=== PATIENT | female | born 1995 | race Two or more races ===

== ENCOUNTER 2019-06-17 14:47 | Outpatient (CLI) | payer OTHER ==
[2019-06-17 15:26] LABS: APPEARANCE,URINE SLIGHTLY-CLOUDY; BILIRUBIN,URINE NEGATIVE (NEGATIVE); COLOR,URINE YELLOW; GLUCOSE, URINE 50 mg/dL (NEGATIVE); KETONES,URINE NEGATIVE (NEGATIVE); LEUKOCYTE ESTERASE,URINE NEGATIVE (NEGATIVE); NITRITE,URINE NEGATIVE (NEGATIVE); PROTEIN,URINE NEGATIVE (NEGATIVE); URINE SPECIFIC GRAVITY 1.017; UROBILINOGEN,URINE NEGATIVE mg/dL (<2.0)
[2019-06-17 15:34] LABS: HEMATOCRIT 38.3 % (36.0-47.0); MEAN CORPUSCULAR HEMOGLOBIN 30.3 pg (27.0-33.4); MEAN CORPUSCULAR VOLUME 89 fl (80-97); PLATELET COUNT 281 10^3/uL (150-450); RED CELL DISTRIBUTION WIDTH 13.5 % (11.5-14.0); WHITE BLOOD COUNT 15.4 10^3/uL (4.0-10.5)
[2019-06-17 15:45] LABS: ALBUMIN 3.9 g/dL (3.5-5.0); ALKALINE PHOSPHATASE 65 U/L (38-126); ANION GAP 10 (5-19); ASPARTATE AMINO TRANSFERASE 24 U/L (14-36); BILIRUBIN,DIRECT 0.1 mg/dL (0.0-0.4); BILIRUBIN,TOTAL 0.2 mg/dL (0.2-1.3); BLOOD UREA NITROGEN 11 mg/dL (7-20); CALCIUM 9.5 mg/dL (8.4-10.2); CARBON DIOXIDE 21 mmol/L (22-30); CHLORIDE 104 mmol/L (98-107); GLUCOSE 86 mg/dL (75-110); POTASSIUM 3.9 mmol/L (3.6-5.0); TOTAL PROTEIN 7.2 g/dL (6.3-8.2); URIC ACID 3.2 mg/dL (2.5-6.2)
[2019-06-17 15:51] LABS: URINE AMPHETAMINES SCREEN NEGATIVE; URINE BARBITURATES SCREEN NEGATIVE; URINE BENZODIAZEPINES SCREEN NEGATIVE; URINE COCAINE SCREEN NEGATIVE; URINE MARIJUANA (THC) SCREEN NEGATIVE; URINE METHADONE SCREEN NEGATIVE; URINE PHENCYCLIDINE SCREEN NEGATIVE
[2019-06-17 15:52] LABS: UR PRO/CREAT RATIO RESULT 0.2 mg/mg (0.0-0.2); URINE CREATININE 100.2 mg/dL (16-327); URINE PROTEIN 16.1 mg/dL (<12)
[2019-06-17 16:05] LABS: ABSOLUTE LYMPHOCYTES# (MANUAL) 1.8 10^3/uL (0.5-4.7); ABSOLUTE MONOCYTES # (MANUAL) 1.1 10^3/uL (0.1-1.4); BASOPHILS % (MANUAL) 0 % (0-2); EOSINOPHILS % (MANUAL) 2 % (0-6); LYMPHOCYTES % (MANUAL) 12 % (13-45); MONOCYTES % (MANUAL) 7 % (3-13); SEGMENTED NEUTROPHILS % (MAN) 79 % (42-78); TOTAL CELLS COUNTED 100
[2019-06-17 16:06] LABS: OVALOCYTES SLIGHT; PLATELET COMMENT ADEQUATE; PLATELET LARGE PRESENT; POLYCHROMASIA SLIGHT
== END 2019-06-17 16:26 | disposition home or self-care (01) ==
LOC: LC 14:47
PROVIDERS: ATTEND Obstetrics & Gynecology
PROC: 4A1HXCZ Monitoring of Products of Conception, Cardiac Rate, External Approach (ICD-10-PCS; principal; 2019-06-17)
DX: O16.2 Unspecified maternal hypertension, second trimester (principal); Z3A.25 25 weeks gestation of pregnancy
CPT/HCPCS: 36415; 80053; 80307; 81001; 82570; 83615; 84156; 84550; 85025

== ENCOUNTER 2019-08-02 00:45 | Outpatient (CLI) | payer OTHER ==
[2019-08-02 01:21] LABS: APPEARANCE,URINE CLEAR; BILIRUBIN,URINE NEGATIVE (NEGATIVE); COLOR,URINE STRAW; GLUCOSE, URINE 150 mg/dL (NEGATIVE); KETONES,URINE NEGATIVE (NEGATIVE); LEUKOCYTE ESTERASE,URINE NEGATIVE (NEGATIVE); NITRITE,URINE NEGATIVE (NEGATIVE); PROTEIN,URINE NEGATIVE (NEGATIVE); URINE SPECIFIC GRAVITY 1.009; UROBILINOGEN,URINE NEGATIVE mg/dL (<2.0)
[2019-08-02 01:50] LABS: URINE AMPHETAMINES SCREEN NEGATIVE; URINE BARBITURATES SCREEN NEGATIVE; URINE BENZODIAZEPINES SCREEN NEGATIVE; URINE COCAINE SCREEN NEGATIVE; URINE MARIJUANA (THC) SCREEN NEGATIVE; URINE METHADONE SCREEN NEGATIVE; URINE PHENCYCLIDINE SCREEN NEGATIVE
== END 2019-08-02 01:56 | disposition home or self-care (01) ==
LOC: LC 00:45
PROVIDERS: ATTEND Obstetrics & Gynecology
PROC: 4A1HXCZ Monitoring of Products of Conception, Cardiac Rate, External Approach (ICD-10-PCS; principal; 2019-08-02)
DX: O36.8190 Decreased fetal movements, unspecified trimester, not applicable or unspecified (principal); Z3A.31 31 weeks gestation of pregnancy
CPT/HCPCS: 80307; 81001

== ENCOUNTER 2019-08-28 14:54 | Outpatient (CLI) | payer OTHER, MEDICAID ==
--- NOTE | 2019-08-28 16:49 | Non Stress Test Report ---
Non Stress Test Datetime Report Generated by CPN: 08/28/2019 16:49 DEMOGRAPHIC Test Number: 1 EGA NST: 35.3 INDICATION Indication for Study (NST) Other: Ordered by provider VITAL SIGNS Temperature - NST: 98.3 Pulse - NST: 96 RESP - NST: 14 NBPSYS NST: 139 NBPDIA NST: 79 MONITORING Monitor Explained: Monitor Explained; Test Explained; Patient Verbalized Understanding Time on Monitor: 08/28/2019 15:15 Time off Monitor: 08/28/2019 15:54 NST Duration: 39 NST INTERVENTIONS NST Interventions: PO Hydration Physician Notified NST: K Goyal BABY A: [id number] BABY A Movement : Present Contraction Frequency : o FHR Baseline : 125 Accelerations : 15X15 Decelerations : None Variability : Moderate 6-25bpm NST Review: Meets Criteria for Reactive NST NST Review and Verified By : Anita Polanco RN NST Results: Reactive NST REPORT Report Trigger: Send Report
== END 2019-08-28 16:17 | disposition home or self-care (01) ==
LOC: LC 14:54
PROVIDERS: ATTEND Obstetrics & Gynecology
PROC: 4A1HXCZ Monitoring of Products of Conception, Cardiac Rate, External Approach (ICD-10-PCS; principal; 2019-08-28)
DX: Z34.93 Encounter for supervision of normal pregnancy, unspecified, third trimester (principal)
CPT/HCPCS: 59025; 94760

== ENCOUNTER 2019-09-08 19:26 | Inpatient (IN) | payer OTHER, MEDICAID ==
[2019-09-08] MEDS ORDERED: RINGERS SOLUTION,LACTATED 300 ML IV ONE ×2 (20:18→20:43)
[2019-09-08] MEDS ORDERED: DINOPROSTONE 10 MG VAGINAL INSERT.SR PV PRN ×2 (20:18→20:43)
[2019-09-08] MEDS ORDERED: RINGERS SOLUTION,LACTATED 1,000 ML IV PRN ×2 (20:18→20:43)
[2019-09-08] MEDS ORDERED: LIDOCAINE 1% INJ-PF (10 MG/ML) 30 ML SDV ONE (20:38)
[2019-09-08] MEDS ORDERED: MISOPROSTOL 0.2 MG TABLET ONE (20:38)
[2019-09-08] MEDS ORDERED: OXYTOCIN/NORMAL SALINE 20 UNIT/1,000 ML RTUINJ ONE (20:38)
[2019-09-08] MEDS ORDERED: DINOPROSTONE 10 MG VAGINAL INSERT.SR ONE (20:38)
[2019-09-08] MEDS ORDERED: OXYTOCIN 10 UNIT/ML VIAL ONE (20:38)
[2019-09-08 20:43] LABS: APPEARANCE,URINE SLIGHTLY-CLOUDY; BILIRUBIN,URINE NEGATIVE (NEGATIVE); CALCIUM OXALATE CRYSTALS,URINE MANY /HPF; COLOR,URINE YELLOW; GLUCOSE, URINE 50 mg/dL (NEGATIVE); KETONES,URINE 20 mg/dL (NEGATIVE); LEUKOCYTE ESTERASE,URINE NEGATIVE (NEGATIVE); NITRITE,URINE NEGATIVE (NEGATIVE); PROTEIN,URINE 30 mg/dL (NEGATIVE); UROBILINOGEN,URINE NEGATIVE mg/dL (<2.0)
[2019-09-08] MEDS ORDERED: OXYTOCIN/NORMAL SALINE 20 UNIT/1,000 ML RTUINJ IV PRN (20:43)
[2019-09-08] MEDS ORDERED: PENICILLIN G-K 5 MILLION UNIT VIAL IV ONE (20:46)
--- NOTE | 2019-09-08 21:04 | Admission Physical ---
Datetime Report Generated by CPN: 09/08/2019 21:04 CURRENT ADMISSION Chief Complaint: Scheduled Induction of Labor Indication for Induction: PreEclampsia Indication for Induction- Other: Preeclampsia, mild Diagnosed by elevated blood pressures and 24 hour urine of 581 No severe features Admit Impression : Induction of Labor Admit Plan: Admit to Unit; Initiate Labor Induction Protocol ALLERGIES Medication Allergies: No Medication Allergies: No Known Allergies (09/08/2019) Latex: Unknown OBSTETRICAL HISTORY EDC: 09/29/2019 00:00 : 1 Para: 0 Term: 0 : 0 SAB: 0 IAB: 0 Ectopic: 0 Livin Cesareans: 0 VBACs: 0 Multiple Births: 0 Gestational Diabetes: No Rh Sensitization: No Incompetent Cervix: No ALLISON: No Infertility: No ART Treatment: No Uterine Anomaly: No IUGR: No Hx Previous C/S: No Macrosomia: No Hx Loss/Stillborn: No PIH: No Hx : No Placenta Previa/Abruption: No Depression/PP Depression: No (Annotations: Data stored by CPN on behalf of user) PTL/PROM: No Post Hemorrhage: No Current Procedures: Ultrasound Obstetrical History Comments: G1- first , elevated b/p lapse in care between 5 total visits prior to 25 weeks SEE RECORDS Alcohol: No Marijuana : Yes Marijuana Frequency: Occasional Last Used: 01/11/2019 00:00 Previous Treatment: None Marijuana Comments: states occasional use prior to Cocaine: No Other Illicit Drugs: No Cigarettes: Former Smoker. 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 Saw therapist in 2016 for depression, no current meds or care noted. Hospitalized in 2013 for Bronchitis. Dx with UTI last week currently on Amoxicillin, Bacterial Vaginosis 05/2019. Father criminal history and drug use deported to [place] with no contact since. INFECTIOUS HISTORY Gonorrhea: No Genital Herpes: No Chlamydia: Yes Tuberculosis: No Syphilis: No Hepatitis: No HIV/AIDS Exposure: No Rash or Viral Illness: No HPV: No Infectious History Comments: chlamydia 05/2016 PHYSICAL EXAM General: Normal HEENT: Normal Neurologic: Normal Thyroid: Normal Heart: Normal Lungs: Normal Breast: Normal Back: Normal Abdomen: Normal Genitourinary Exam: Normal Extremities: Normal DTRs: Normal Pelvic Type: Adequate Physical Exam Comments: NO RUQ pain on palpation. Lungs CTAB, RRR, S1S2 BLE reflexes 1/4 with no clonus Vital Signs: Reviewed; Within Normal Limits VAGINAL EXAM Dilatation: 0 Effacement: 25 Station: -3 Contraction Comments: no regular MEMBRANES Membranes: Intact FETUS A EGA: 37.0 Monitoring: External US FHR- Baseline: 125 Variability: Moderate 6-25bpm Accelerations: 15X15 Decelerations: None FHR Category: Category I Presentation: Vertex Admit Comment: 23 yio G1 at 37.0 wks EGA for IOL d/t preeclampsia mild without severe features diagnosed by elevated blood pressures and 24 hour protein of 581 -Admit to LDR -NPO and IVFs -CEFM and [place] -GBS positive: PCN -O positive blood type -Plan for cervidil tonight; cl/th/high. Placed at 2041 PLANS FOR LABOR AND DELIVERY Labor and Delivery: None Pain Management: Natural Feeding Preference: Breast Benefit of Breast Feed Discussed: Yes Circumcision: No INFORMED CONSENT Informed Consent Obtained: Vaginal Delivery; Section Delivery; Induction of Labor; Risks, Benefits and Alternatives Discussed Signature: with User ID: [email or web address] : with User ID: [email or web address]
[2019-09-08 21:24] LABS: URINE AMPHETAMINES SCREEN NEGATIVE; URINE BARBITURATES SCREEN NEGATIVE; URINE BENZODIAZEPINES SCREEN NEGATIVE; URINE COCAINE SCREEN NEGATIVE; URINE MARIJUANA (THC) SCREEN NEGATIVE; URINE METHADONE SCREEN NEGATIVE; URINE PHENCYCLIDINE SCREEN NEGATIVE
[2019-09-08 21:25] LABS: ABSOLUTE EOSINOPHILS # (AUTO) 0.1 10^3/uL (0.0-0.6); ABSOLUTE LYMPHOCYTES (AUTO) 2.7 10^3/uL (0.5-4.7); ABSOLUTE MONOCYTES (AUTO) 1.1 10^3/uL (0.1-1.4); ABSOLUTE NEUT (AUTO) 10.3 10^3/uL (1.7-8.2); BASOPHILS % (AUTO) 0.3 % (0-2); EOSINOPHILS % (AUTO) 0.6 % (0-6); HEMATOCRIT 38.7 % (36.0-47.0); HEMOGLOBIN 13.1 g/dL (12.0-15.5); LYMPHOCYTES % (AUTO) 18.9 % (13-45); MEAN CORPUSCULAR HEMOGLOBIN 30.7 pg (27.0-33.4); MEAN CORPUSCULAR VOLUME 90 fl (80-97); MONOCYTES % (AUTO) 7.9 % (3-13); PLATELET COUNT 281 10^3/uL (150-450); RED BLOOD COUNT 4.28 10^6/uL (3.72-5.28); RED CELL DISTRIBUTION WIDTH 13.7 % (11.5-14.0); SEGMENTED NEUTROPHILS % (AUTO) 72.3 % (42-78); TOTAL CELLS COUNTED % (AUTO) 100 %; WHITE BLOOD COUNT 14.3 10^3/uL (4.0-10.5)
[2019-09-08 21:49] LABS: ALBUMIN 3.4 g/dL (3.5-5.0); ALKALINE PHOSPHATASE 111 U/L (38-126); ANION GAP 11 (5-19); ASPARTATE AMINO TRANSFERASE 25 U/L (14-36); BILIRUBIN,DIRECT 0.2 mg/dL (0.0-0.4); BILIRUBIN,TOTAL 0.3 mg/dL (0.2-1.3); BLOOD UREA NITROGEN 13 mg/dL (7-20); CALCIUM 9.5 mg/dL (8.4-10.2); CARBON DIOXIDE 19 mmol/L (22-30); CHLORIDE 105 mmol/L (98-107); GLUCOSE 119 mg/dL (75-110); POTASSIUM 3.9 mmol/L (3.6-5.0); TOTAL PROTEIN 6.5 g/dL (6.3-8.2); URIC ACID 4.9 mg/dL (2.5-6.2)
[2019-09-09] MEDS ORDERED: PENICILLIN G-K 5 MILLION UNIT VIAL IV SCH (01:00)
[2019-09-09] MEDS ORDERED: LABETALOL HCL 200 MG TABLET ONE ×2 (07:24→15:54)
[2019-09-09] MEDS: LABETALOL HCL 200 MG TABLET PO SCH ×2 (07:29→15:55)
[2019-09-09] MEDS ORDERED: MAG HYDROX/AL HYDROX/SIMETH SUSP 30 ML UDCUP ONE (08:01)
[2019-09-09] MEDS ORDERED: MAG HYDROX/AL HYDROX/SIMETH SUSP 30 ML UDCUP PO ONE (08:30)
[2019-09-09] MEDS ORDERED: MISOPROSTOL 0.1 MG TABLET PO ONE (10:16)
[2019-09-09] MEDS ORDERED: MISOPROSTOL 0.1 MG TABLET PV ONE (10:18)
[2019-09-09] MEDS ORDERED: MISOPROSTOL 0.1 MG TABLET ONE (10:24)
[2019-09-09] MEDS ORDERED: PENICILLIN G-K 5 MILLION UNIT VIAL ONE (16:04)
[2019-09-09] MEDS ORDERED: DINOPROSTONE 10 MG VAGINAL INSERT.SR PV PRN (20:52)
[2019-09-09] MEDS ORDERED: DINOPROSTONE 10 MG VAGINAL INSERT.SR ONE (20:54)
[2019-09-10] MEDS ORDERED: LABETALOL HCL 200 MG TABLET ONE ×2 (06:32→15:35)
[2019-09-10] MEDS: LABETALOL HCL 200 MG TABLET PO SCH ×2 (06:36→15:36)
[2019-09-10] MEDS ORDERED: OXYTOCIN/NORMAL SALINE 20 UNIT/1,000 ML RTUINJ ONE (09:32)
[2019-09-10] MEDS ORDERED: PENICILLIN G-K 5 MILLION UNIT VIAL ONE ×2 (10:05→13:58)
--- NOTE | 2019-09-16 13:40 | PDOC DISCHARGE SUMMARY ---
Impression - Admit/DC Date/PCP Admission Date/Primary Care Provider: 09/08/19 19:26 SHASHANK JACOBSEN MD Discharge Date: 09/10/19 - Discharge Diagnosis (1) Chronic hypertension affecting Is this a current diagnosis for this admission?: Yes (2) Encounter for induction of labor Is this a current diagnosis for this admission?: Yes - Additional Information Resuscitation Status: Full Code Discharge Diet: As Tolerated Discharge Activity: Activity As Tolerated Referrals: SHASHANK JACOBSEN MD [Primary Care Provider] - Home Medications: Vit/Dha [ Multi + Dha Capsule] 1 cap PO DAILY 06/17/19 Labetalol HCl 100 mg PO TID 08/28/19 Vit D3/Folic Acid/B2/B6/B12 [Folgard Tablet] 1 each PO DAILY 08/28/19 History of Present Illiness History of Present Illness: JEAN HINES is a 24 year old female admitted with mild pre-eclampsia for induction pt had no cervical change and blood pressure WNL and labs WNL. pt given option of continuing or being disch arged and return next week for induction. pt chose to be dischargedf. Physical Exam - Physical Exam General appearance: PRESENT: no acute distress Respiratory exam: PRESENT: clear to auscultation naima Cardiovascular exam: PRESENT: RRR Results Laboratory Results: WBC 14.3 10^3/uL (4.0-10.5) H 09/08/19 21:14 RBC 4.28 10^6/uL (3.72-5.28) 09/08/19 21:14 Hgb 13.1 g/dL (12.0-15.5) 09/08/19 21:14 Hct 38.7 % (36.0-47.0) 09/08/19 21:14 MCV 90 fl (80-97) 09/08/19 21:14 MCH 30.7 pg (27.0-33.4) 09/08/19 21:14 MCHC 34.0 g/dL (32.0-36.0) 09/08/19 21:14 RDW 13.7 % (11.5-14.0) 09/08/19 21:14 Plt Count 281 10^3/uL (150-450) 09/08/19 21:14 Lymph % (Auto) 18.9 % (13-45) 09/08/19 21:14 [place] % (Auto) 7.9 % (3-13) 09/08/19 21:14 Eos % (Auto) 0.6 % (0-6) 09/08/19 21:14 Baso % (Auto) 0.3 % (0-2) 09/08/19 21:14 Absolute Neuts (auto) 10.3 10^3/uL (1.7-8.2) H 09/08/19 21:14 Absolute Lymphs (auto) 2.7 10^3/uL (0.5-4.7) 09/08/19 21:14 Absolute Monos (auto) 1.1 10^3/uL (0.1-1.4) 09/08/19 21:14 Absolute Eos (auto) 0.1 10^3/uL (0.0-0.6) 09/08/19 21:14 Absolute Basos (auto) 0.0 10^3/uL (0.0-0.2) 09/08/19 21:14 Seg Neutrophils % 72.3 % (42-78) 09/08/19 21:14 Sodium 134.5 mmol/L (137-145) L 09/08/19 21:14 Potassium 3.9 mmol/L (3.6-5.0) 09/08/19 21:14 Chloride 105 mmol/L (98-107) 09/08/19 21:14 Carbon Dioxide 19 mmol/L (22-30) L 09/08/19 21:14 Anion Gap 11 (5-19) 09/08/19 21:14 BUN 13 mg/dL (7-20) 09/08/19 21:14 Creatinine 0.58 mg/dL (0.52-1.25) 09/08/19 21:14 Est GFR ( Amer) > 60 (>60) 09/08/19 21:14 Est GFR (MDRD) Non-Af > 60 (>60) 09/08/19 21:14 Glucose 119 mg/dL (75-110) H 09/08/19 21:14 Uric Acid 4.9 mg/dL (2.5-6.2) 09/08/19 21:14 Calcium 9.5 mg/dL (8.4-10.2) 09/08/19 21:14 Total Bilirubin 0.3 mg/dL (0.2-1.3) 09/08/19 21:14 Direct Bilirubin 0.2 mg/dL (0.0-0.4) 09/08/19 21:14 Neonat Total Bilirubin Not Reportable 09/08/19 21:14 Neonat Direct Bilirubin Not Reportable 09/08/19 21:14 Neonat Indirect Bili Not Reportable 09/08/19 21:14 AST 25 U/L (14-36) 09/08/19 21:14 ALT 16 U/L (<35) 09/08/19 21:14 Alkaline Phosphatase 111 U/L (38-126) 09/08/19 21:14 Lactate Dehydrogenase 163 U/L (120-246) 09/08/19 21:14 Total Protein 6.5 g/dL (6.3-8.2) 09/08/19 21:14 Albumin 3.4 g/dL (3.5-5.0) L 09/08/19 21:14 Urine Color YELLOW 09/08/19 19:11 Urine Appearance SLIGHTLY-CLOUDY 09/08/19 19:11 Urine pH 5.0 (5.0-9.0) 09/08/19 19:11 Ur Specific [place] 1.030 09/08/19 19:11 Urine Protein 30 mg/dL (NEGATIVE) H 09/08/19 19:11 Urine Glucose (UA) 50 mg/dL (NEGATIVE) H 09/08/19 19:11 Urine Ketones 20 mg/dL (NEGATIVE) H 09/08/19 19:11 Urine Blood NEGATIVE (NEGATIVE) 09/08/19 19:11 Urine Nitrite NEGATIVE (NEGATIVE) 09/08/19 19:11 Urine Bilirubin NEGATIVE (NEGATIVE) 09/08/19 19:11 Urine Urobilinogen NEGATIVE mg/dL (<2.0) 09/08/19 19:11 Ur Leukocyte Esterase NEGATIVE (NEGATIVE) 09/08/19 19:11 Urine WBC (Auto) 2 /HPF 09/08/19 19:11 Squamous Epi Cells Auto 1 /HPF 09/08/19 19:11 Calcium Oxalate Cr Auto MANY /HPF 09/08/19 19:11 Urine Mucus (Auto) OCC /LPF 09/08/19 19:11 Urine Ascorbic Acid 40 (NEGATIVE) H 09/08/19 19:11 Urine Opiates Screen NEGATIVE 09/08/19 19:11 Urine Methadone Screen NEGATIVE 09/08/19 19:11 Ur Barbiturates Screen NEGATIVE 09/08/19 19:11 Ur Phencyclidine Scrn NEGATIVE 09/08/19 19:11 Ur Amphetamines Screen NEGATIVE 09/08/19 19:11 U Benzodiazepines Scrn NEGATIVE 09/08/19 19:11 Urine Cocaine Screen NEGATIVE 09/08/19 19:11 U Marijuana (THC) Screen NEGATIVE 09/08/19 19:11 RPR NONREACTIVE (NONREACTIVE) 09/08/19 21:14 Blood Type O POSITIVE 09/08/19 21:14 Antibody Screen NEGATIVE 09/08/19 21:14 Plan Plan of Treatment: ischare with pre-eclampsia percaustions f/u prn or next week for induction Stroke Is this a Stroke Patient?: No Acute Heart Failure - Is this a Heart Failure Patient?: No
== END 2019-09-10 18:18 | disposition home or self-care (01) | DRG 832 ==
LOC: LR 19:26
PROVIDERS: ADMIT Obstetrics & Gynecology; ATTEND Obstetrics & Gynecology
DX: O14.03 Mild to moderate pre-eclampsia, third trimester (principal); O23.43 Unspecified infection of urinary tract in pregnancy, third trimester; O99.820 Streptococcus B carrier state complicating pregnancy; O16.3 Unspecified maternal hypertension, third trimester; Z3A.37 37 weeks gestation of pregnancy
CPT/HCPCS: 36415; 80053; 80307; 81001; 83615; 84550; 85025; 86592; 86850; 86900; 86901; J2540; J2590; J3490

== ENCOUNTER 2019-09-15 08:44 | Inpatient (IN) | payer OTHER, MEDICAID ==
[2019-09-15] MEDS ORDERED: MISOPROSTOL 0.1 MG TABLET ONE (08:51)
--- NOTE | 2019-09-15 09:15 | Admission Physical ---
Datetime Report Generated by CPN: 09/15/2019 09:14 CURRENT ADMISSION Chief Complaint: Scheduled Induction of Labor Indication for Induction: PreEclampsia Indication for Induction- Other: Preeclampsia, mild Diagnosed by elevated blood pressures and 24 hour urine of 581 No severe features Admit Impression : Term, Intrauterine Admit Plan: Admit to Unit; Initiate Labor Induction Protocol ALLERGIES Medication Allergies: No Medication Allergies: No Known Allergies (09/08/2019) Latex: Unknown OBSTETRICAL HISTORY EDC: 09/29/2019 00:00 : 1 Para: 0 Term: 0 : 0 SAB: 0 IAB: 0 Ectopic: 0 Livin Cesareans: 0 VBACs: 0 Multiple Births: 0 Gestational Diabetes: No Rh Sensitization: No Incompetent Cervix: No ALLISON: No Infertility: No ART Treatment: No Uterine Anomaly: No IUGR: No Hx Previous C/S: No Macrosomia: No Hx Loss/Stillborn: No PIH: No Hx : No Placenta Previa/Abruption: No Depression/PP Depression: No (Annotations: Data stored by CPN on behalf of user) PTL/PROM: No Post Hemorrhage: No Current Procedures: Ultrasound Obstetrical History Comments: G1- first , elevated b/p lapse in care between 5 total visits prior to 25 weeks SEE RECORDS Alcohol: No Marijuana : Yes Marijuana Frequency: Occasional Last Used: 01/11/2019 00:00 Previous Treatment: None Marijuana Comments: states occasional use prior to Cocaine: No Other Illicit Drugs: No Cigarettes: Former Smoker. 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 Saw therapist in 2016 for depression, no current meds or care noted. Hospitalized in 2013 for Bronchitis. Dx with UTI last week currently on Amoxicillin, Bacterial Vaginosis 05/2019. Father criminal history and drug use deported to [employer] with no contact since. INFECTIOUS HISTORY Gonorrhea: No Genital Herpes: No Chlamydia: Yes Tuberculosis: No Syphilis: No Hepatitis: No HIV/AIDS Exposure: No Rash or Viral Illness: No HPV: No Infectious History Comments: chlamydia 05/2016 PHYSICAL EXAM General: Normal HEENT: Normal Neurologic: Normal Thyroid: Normal Heart: Normal Lungs: Normal Breast: Normal Back: Normal Abdomen: Normal Genitourinary Exam: Normal Extremities: Normal DTRs: Normal Pelvic Type: Adequate Physical Exam Comments: NO RUQ pain on palpation. Lungs CTAB, RRR, S1S2 BLE reflexes 1/4 with no clonus Vital Signs: Reviewed; Within Normal Limits VAGINAL EXAM Dilatation: 1 Effacement: 50 Station: -2 Contraction Comments: irregular contractions: not painful MEMBRANES Membranes: Intact FETUS A EGA: 37.1 Monitoring: External US FHR- Baseline: 125 Variability: Moderate 6-25bpm Accelerations: 15X15 Decelerations: None FHR Category: Category I Presentation: Vertex Admit Comment: 23 yo G1 at 38.0 wks EGA for scheduled IOL d/t mild preeclampsia diagnosed by elevated blood pressures and positive 24 hr urine of 581 -Admit to LDR -NPO and IVFs: LR @ 125 cc/hr -CEFM and [place] -GBS positive PCN -O positive blood type -Plan for cytotec PO and PV. If able will get davis bulb in place. Pitocin low dose when cervix more favorable -Will monitor B/Ps and if severes or severe features will start Mag sulfate drip. Otherwise continue oral antihypertensives . Labs on admit -Undecided on epidural -Anticipate PLANS FOR LABOR AND DELIVERY Labor and Delivery: None Pain Management: Natural Feeding Preference: Breast Benefit of Breast Feed Discussed: Yes Circumcision: No INFORMED CONSENT Informed Consent Obtained: Vaginal Delivery; Section Delivery; Induction of Labor; Risks, Benefits and Alternatives Discussed Signature: with User ID: [email or web address] : with User ID: Vance
[2019-09-15] MEDS: RINGERS SOLUTION,LACTATED 1,000 ML IV PRN ×2 (09:45→22:20)
[2019-09-15] MEDS ORDERED: RINGERS SOLUTION,LACTATED 300 ML IV ONE (10:04)
[2019-09-15] MEDS ORDERED: MISOPROSTOL 0.1 MG TABLET PO ONE (10:11)
[2019-09-15 10:34] LABS: APPEARANCE,URINE SLIGHTLY-CLOUDY; BILIRUBIN,URINE NEGATIVE (NEGATIVE); COLOR,URINE YELLOW; GLUCOSE, URINE 50 mg/dL (NEGATIVE); KETONES,URINE NEGATIVE (NEGATIVE); LEUKOCYTE ESTERASE,URINE NEGATIVE (NEGATIVE); NITRITE,URINE NEGATIVE (NEGATIVE); PROTEIN,URINE NEGATIVE (NEGATIVE); UROBILINOGEN,URINE NEGATIVE mg/dL (<2.0)
[2019-09-15 10:57] LABS: URINE AMPHETAMINES SCREEN NEGATIVE; URINE BARBITURATES SCREEN NEGATIVE; URINE BENZODIAZEPINES SCREEN NEGATIVE; URINE COCAINE SCREEN NEGATIVE; URINE MARIJUANA (THC) SCREEN NEGATIVE; URINE METHADONE SCREEN NEGATIVE; URINE PHENCYCLIDINE SCREEN NEGATIVE
[2019-09-15 10:58] LABS: HEMATOCRIT 41.4 % (36.0-47.0); HEMOGLOBIN 14.3 g/dL (12.0-15.5); MEAN CORPUSCULAR HEMOGLOBIN 30.9 pg (27.0-33.4); MEAN CORPUSCULAR HGB CONC 34.5 g/dL (32.0-36.0); MEAN CORPUSCULAR VOLUME 90 fl (80-97); PLATELET COUNT 224 10^3/uL (150-450); RED BLOOD COUNT 4.61 10^6/uL (3.72-5.28); WHITE BLOOD COUNT 14.6 10^3/uL (4.0-10.5)
[2019-09-15] MEDS ORDERED: NYSTATIN OINTMENT 15 GM TUBE TP ONE (11:00)
[2019-09-15] MEDS ORDERED: PROMETHAZINE HCL INJ 25 MG/1 ML VIAL ONE (11:18)
[2019-09-15] MEDS ORDERED: NALBUPHINE HCL INJ 10 MG/1 ML AMPULE ONE (11:18)
[2019-09-15 11:23] LABS: ALBUMIN 3.5 g/dL (3.5-5.0); ALKALINE PHOSPHATASE 123 U/L (38-126); ANION GAP 12 (5-19); ASPARTATE AMINO TRANSFERASE 25 U/L (14-36); BILIRUBIN,DIRECT 0.3 mg/dL (0.0-0.4); BILIRUBIN,TOTAL 0.4 mg/dL (0.2-1.3); BLOOD UREA NITROGEN 12 mg/dL (7-20); CALCIUM 9.1 mg/dL (8.4-10.2); CARBON DIOXIDE 19 mmol/L (22-30); CHLORIDE 103 mmol/L (98-107); GLUCOSE 73 mg/dL (75-110); POTASSIUM 4.4 mmol/L (3.6-5.0); TOTAL PROTEIN 6.4 g/dL (6.3-8.2); URIC ACID 4.3 mg/dL (2.5-6.2)
[2019-09-15] MEDS ORDERED: NALBUPHINE HCL INJ 10 MG/1 ML AMPULE INJ ONE (11:45)
[2019-09-15] MEDS ORDERED: PROMETHAZINE HCL INJ 25 MG/1 ML VIAL IV ONE (11:45)
[2019-09-15] MEDS ORDERED: OXYTOCIN 10 UNIT/ML VIAL ONE (14:02)
[2019-09-15] MEDS ORDERED: LIDOCAINE 1% INJ-PF (10 MG/ML) 30 ML SDV ONE (14:02)
[2019-09-15] MEDS ORDERED: MISOPROSTOL 0.2 MG TABLET ONE (14:02)
[2019-09-15] MEDS ORDERED: OXYTOCIN/NORMAL SALINE 20 UNIT/1,000 ML RTUINJ ONE (14:02)
[2019-09-15] MEDS ORDERED: OXYTOCIN/NORMAL SALINE 20 UNIT/1,000 ML RTUINJ IV PRN (14:05)
[2019-09-15] MEDS ORDERED: PENICILLIN G POTASSIUM 5,000,000 UNIT in DEXTROSE 5%-WATER 100 ML IV ONE (14:06)
[2019-09-15] MEDS ORDERED: PENICILLIN G-K 5 MILLION UNIT VIAL ONE ×3 (14:52→22:39)
[2019-09-15] MEDS: PENICILLIN G POTASSIUM 2,500,000 UNIT in DEXTROSE 5%-WATER 50 ML IV SCH ×2 (18:54→22:53)
--- NOTE | 2019-09-15 21:30 | PDOC PROGRESS REPORT ---
Subjective Progress Note for:: 09/15/19 Subjective:: Late entry 10am Pain minimal now. No regular ctx Cook catheter placed without difficulty and Oral cytotec 50mcg given. Reason For Visit: /INDUCTION Physical Exam - Physical Exam Vital Signs: Intake & Output 09/14/19 09/15/19 09/16/19 06:59 06:59 06:59 Weight 100.5 kg - Gynecological Exam Labia: normal Introitus: normal Perineum: normal Vagina: normal Cervix: other - posterior Result Laboratory Results: 09/15/19 10:35 09/15/19 10:35 09/15/19 09/15/19 09/15/19 09:21 10:35 10:35 WBC 14.6 H RBC 4.61 Hgb 14.3 Hct 41.4 MCV 90 MCH 30.9 MCHC 34.5 RDW 14.0 Plt Count 224 Sodium 133.8 L Potassium 4.4 Chloride 103 Carbon Dioxide 19 L Anion Gap 12 BUN 12 Creatinine 0.53 Est GFR ( Amer) > 60 Glucose 73 L Uric Acid 4.3 Calcium 9.1 Total Bilirubin 0.4 AST 25 Alkaline Phosphatase 123 Total Protein 6.4 Albumin 3.5 Urine Color YELLOW Urine Appearance SLIGHTLY-CLOUDY Urine pH 5.0 Ur Specific [place] 1.020 Urine Protein NEGATIVE Urine Glucose (UA) 50 H Urine Ketones NEGATIVE Urine Blood NEGATIVE Urine Nitrite NEGATIVE Ur Leukocyte Esterase NEGATIVE Urine WBC (Auto) 1 Urine RBC (Auto) 1 Blood Type Antibody Screen 09/15/19 10:35 WBC RBC Hgb Hct MCV MCH MCHC RDW Plt Count Sodium Potassium Chloride Carbon Dioxide Anion Gap BUN Creatinine Est GFR ( Amer) Glucose Uric Acid Calcium Total Bilirubin AST Alkaline Phosphatase Total Protein Albumin Urine Color Urine Appearance Urine pH Ur Specific [place] Urine Protein Urine Glucose (UA) Urine Ketones Urine Blood Urine Nitrite Ur Leukocyte Esterase Urine WBC (Auto) Urine RBC (Auto) Blood Type O POSITIVE Antibody Screen NEGATIVE Assessment & Plan - Diagnosis (1) Chronic hypertension affecting Is this a current diagnosis for this admission?: Yes (2) Encounter for induction of labor Is this a current diagnosis for this admission?: Yes - Time Time Spent with patient: 15-24 minutes - Plan Summary Plan Summary: Cook catheter placed as above. Cervix 09/26-
--- NOTE | 2019-09-15 21:33 | PDOC PROGRESS REPORT ---
Subjective Progress Note for:: 09/15/19 Subjective:: Feeling moderately painful contractions now and feels like her water just broke Reason For Visit: /INDUCTION Physical Exam - Physical Exam Vital Signs: Intake & Output 09/14/19 09/15/19 09/16/19 06:59 06:59 06:59 Weight 100.5 kg General appearance: PRESENT: no acute distress, cooperative Psychiatric exam: PRESENT: normal mood - Gynecological Exam Labia: normal Introitus: normal Perineum: normal Vagina: normal Cervix: other - 4-5/75/-3 Result Laboratory Results: 09/15/19 10:35 09/15/19 10:35 09/15/19 09/15/19 09/15/19 09:21 10:35 10:35 WBC 14.6 H RBC 4.61 Hgb 14.3 Hct 41.4 MCV 90 MCH 30.9 MCHC 34.5 RDW 14.0 Plt Count 224 Sodium 133.8 L Potassium 4.4 Chloride 103 Carbon Dioxide 19 L Anion Gap 12 BUN 12 Creatinine 0.53 Est GFR ( Amer) > 60 Glucose 73 L Uric Acid 4.3 Calcium 9.1 Total Bilirubin 0.4 AST 25 Alkaline Phosphatase 123 Total Protein 6.4 Albumin 3.5 Urine Color YELLOW Urine Appearance SLIGHTLY-CLOUDY Urine pH 5.0 Ur Specific [place] 1.020 Urine Protein NEGATIVE Urine Glucose (UA) 50 H Urine Ketones NEGATIVE Urine Blood NEGATIVE Urine Nitrite NEGATIVE Ur Leukocyte Esterase NEGATIVE Urine WBC (Auto) 1 Urine RBC (Auto) 1 Blood Type Antibody Screen 09/15/19 10:35 WBC RBC Hgb Hct MCV MCH MCHC RDW Plt Count Sodium Potassium Chloride Carbon Dioxide Anion Gap BUN Creatinine Est GFR ( Amer) Glucose Uric Acid Calcium Total Bilirubin AST Alkaline Phosphatase Total Protein Albumin Urine Color Urine Appearance Urine pH Ur Specific [place] Urine Protein Urine Glucose (UA) Urine Ketones Urine Blood Urine Nitrite Ur Leukocyte Esterase Urine WBC (Auto) Urine RBC (Auto) Blood Type O POSITIVE Antibody Screen NEGATIVE Assessment & Plan - Diagnosis (1) Chronic hypertension affecting Is this a current diagnosis for this admission?: Yes (2) Encounter for induction of labor Is this a current diagnosis for this admission?: Yes - Time Time Spent with patient: 15-24 minutes - Plan Summary Plan Summary: s/p PO Cytotec, Cook catheter SROM-clear, small amount S/p 2 dose PCN IV for GBS positive Pitocin Low dose infusing per Protocol Anticipate Considering Epidural
[2019-09-15] MEDS ORDERED: EPHEDRINE SULFATE INJ 50 MG/1 ML AMPULE ONE (22:10)
[2019-09-15] MEDS ORDERED: FENTANYL/BUPIVACAINE/NS/PF 300 MCG/150 ML RTUINJ EPI ONE (22:11)
[2019-09-15] MEDS ORDERED: BUPIVACAINE HCL 0.25 % INJ/PF (2.5 MG/1 ML) 30 ML VIAL ONE (22:11)
[2019-09-16] MEDS ORDERED: PENICILLIN G-K 5 MILLION UNIT VIAL ONE ×3 (02:50→11:05)
[2019-09-16] MEDS: PENICILLIN G POTASSIUM 2,500,000 UNIT in DEXTROSE 5%-WATER 50 ML IV SCH ×4 (02:57→18:04)
[2019-09-16] MEDS: RINGERS SOLUTION,LACTATED 1,000 ML IV PRN (11:18)
[2019-09-16] MEDS ORDERED: PSEUDOEPHEDRINE HCL 30 MG TABLET PO PRN (13:35)
[2019-09-16] MEDS ORDERED: PROMETHAZINE HCL 25 MG SUPP.RECT PR PRN (13:35)
[2019-09-16] MEDS ORDERED: MAGNESIUM HYDROXIDE SUSP 30 ML UDCUP PO PRN (13:35)
[2019-09-16] MEDS ORDERED: ACETAMINOPHEN 325 MG TABLET PO PRN (13:35)
[2019-09-16] MEDS ORDERED: DIBUCAINE 1% OINTMENT 28 GM TP PRN (13:35)
[2019-09-16] MEDS ORDERED: PROMETHAZINE HCL 25 MG TABLET PO PRN (13:35)
[2019-09-16] MEDS ORDERED: ACETAMINOPHEN WITH CODEINE #3 TABLET PO PRN ×2 (13:35)
[2019-09-16] MEDS ORDERED: DIPH/PERTUSS(ACELL)/TETANUS VAC/PF 0.5 ML SYR (>=10YO) IM PRN (13:35)
[2019-09-16] MEDS ORDERED: ZOLPIDEM TARTRATE 5 MG TABLET PO PRN (13:35)
[2019-09-16] MEDS ORDERED: DIPHENHYDRAMINE HCL 25 MG CAPSULE PO PRN (13:35)
[2019-09-16] MEDS ORDERED: PROMETHAZINE HCL INJ 25 MG/1 ML VIAL IV PRN (13:35)
[2019-09-16] MEDS ORDERED: BENZOCAINE/MENTHOL AEROSOL SPRAY 56 ML TOP PRN (13:35)
[2019-09-16] MEDS ORDERED: MEASLES,MUMPS&RUBELLA VACC/PF 0.5 ML VIAL SUBCUT PRN (13:35)
[2019-09-16] MEDS ORDERED: GLYCERIN/WITCH HAZEL LEAF 1 EACH MED..WIPE TP PRN (13:35)
[2019-09-16] MEDS ORDERED: NA PHOS,M-B/NA PHOS,DI-BA (ADULT) 133 ML ENEMA PR PRN (13:35)
[2019-09-16] MEDS ORDERED: OXYTOCIN/NORMAL SALINE 20 UNIT/1,000 ML RTUINJ IV PRN (13:35)
[2019-09-16] MEDS ORDERED: MISOPROSTOL 0.1 MG TABLET PR ONE (13:50)
[2019-09-16] MEDS ORDERED: OXYTOCIN/NORMAL SALINE 20 UNIT/1,000 ML RTUINJ ONE (14:15)
[2019-09-16] MEDS: IBUPROFEN 800 MG TABLET PO SCH ×2 (17:20→23:55)
[2019-09-16] MEDS: DOCUSATE SODIUM 100 MG CAPSULE PO SCH (17:20)
[2019-09-16] MEDS: FERROUS SULFATE 325 MG TABLET PO SCH (17:20)
[2019-09-16] MEDS ORDERED: FAMOTIDINE 20 MG TABLET ONE (23:50)
[2019-09-16] MEDS: FAMOTIDINE 20 MG TABLET PO SCH (23:55)
[2019-09-17] MEDS: IBUPROFEN 800 MG TABLET PO SCH ×3 (05:18→22:50)
[2019-09-17 07:09] LABS: HEMATOCRIT 33.6 % (36.0-47.0); MEAN CORPUSCULAR HGB CONC 34.2 g/dL (32.0-36.0); MEAN CORPUSCULAR VOLUME 91 fl (80-97); PLATELET COUNT 204 10^3/uL (150-450); RED BLOOD COUNT 3.71 10^6/uL (3.72-5.28); RED CELL DISTRIBUTION WIDTH 14.2 % (11.5-14.0); WHITE BLOOD COUNT 19.3 10^3/uL (4.0-10.5)
[2019-09-17 07:11] LABS: HEMOGLOBIN 11.5 g/dL (12.0-15.5)
[2019-09-17] MEDS: PRENATAL VITAMIN W DHA CAPSULE PO SCH (09:36)
[2019-09-17] MEDS: DOCUSATE SODIUM 100 MG CAPSULE PO SCH ×2 (09:37→17:19)
[2019-09-17] MEDS: SENNOSIDES/DOCUSATE 8.6-50 MG 1 EACH TABLET PO SCH (09:37)
[2019-09-17] MEDS: FERROUS SULFATE 325 MG TABLET PO SCH ×2 (09:37→17:19)
[2019-09-17] MEDS: FAMOTIDINE 20 MG TABLET PO SCH ×2 (11:50→22:50)
--- NOTE | 2019-09-17 13:50 | PDOC PROGRESS REPORT ---
Subjective Progress Note for:: 09/17/19 Subjective:: She reports that she is doing well. Reason For Visit: POST Physical Exam - Physical Exam Vital Signs: Temp Pulse Resp BP Pulse Ox 97.6 F 81 20 145/83 H 96 09/17/19 11:20 09/17/19 12:18 09/17/19 11:20 09/17/19 12:18 09/17/19 11:20 Intake & Output 09/16/19 09/17/19 09/18/19 06:59 06:59 06:59 Intake Total 1999 1999 Balance 1999 1999 Weight 100.5 kg General appearance: PRESENT: no acute distress, well-developed, well-nourished Extremities exam: PRESENT: full ROM. ABSENT: calf tenderness, clubbing, pedal edema - Gynecological Exam Labia: normal Introitus: normal Perineum: normal Vagina: normal Cervix: other - 4-5/75/-3 Result Laboratory Results: 09/17/19 06:25 09/15/19 10:35 09/17/19 06:25 WBC 19.3 H RBC 3.71 L Hgb 11.5 L D Hct 33.6 L MCV 91 MCH 31.0 MCHC 34.2 RDW 14.2 H Plt Count 204 Impressions: day doing well. Plan for discharge tomorrow. Assessment & Plan - Diagnosis (1) Vaginal delivery Is this a current diagnosis for this admission?: Yes - Time Time Spent with patient: 15-24 minutes Anticipated discharge: Home Within: within 48 hours
[2019-09-18] MEDS: IBUPROFEN 800 MG TABLET PO SCH (06:46)
[2019-09-18] MEDS: PRENATAL VITAMIN W DHA CAPSULE PO SCH (09:23)
[2019-09-18] MEDS: DOCUSATE SODIUM 100 MG CAPSULE PO SCH (09:23)
[2019-09-18] MEDS: SENNOSIDES/DOCUSATE 8.6-50 MG 1 EACH TABLET PO SCH (09:23)
[2019-09-18] MEDS: FAMOTIDINE 20 MG TABLET PO SCH (09:23)
[2019-09-18] MEDS: FERROUS SULFATE 325 MG TABLET PO SCH (09:23)
--- NOTE | 2019-09-18 10:08 | PDOC DISCHARGE SUMMARY ---
Impression - Admit/DC Date/PCP Admission Date/Primary Care Provider: 09/15/19 08:44 XANDER BURGER MD Discharge Date: 09/18/19 - PP Day #2, doing well, no complaints, breast and bottlefeeding, O+, Rubella immune - Discharge Diagnosis (1) Carrier or suspected carrier of group B Streptococcus Is this a current diagnosis for this admission?: Yes (2) Chronic hypertension affecting Is this a current diagnosis for this admission?: Yes (3) Encounter for induction of labor Is this a current diagnosis for this admission?: Yes (4) Obstetrical laceration, first degree Is this a current diagnosis for this admission?: Yes (5) Vaginal delivery Is this a current diagnosis for this admission?: Yes - Additional Information Resuscitation Status: Full Code Discharge Diet: As Tolerated, Regular Discharge Activity: Activity As Tolerated, No Lifting Over 10 Pounds, Pelvic Rest Referrals: XANDER BURGER MD [Primary Care Provider] - Prescriptions: Ibuprofen [Motrin 800 mg Tablet] 800 mg PO Q8 #60 tablet Home Medications: Vit/Dha [ Multi + Dha Capsule] 1 cap PO DAILY 06/17/19 Labetalol HCl 100 mg PO TID 08/28/19 Vit D3/Folic Acid/B2/B6/B12 [Folgard Tablet] 1 each PO DAILY 08/28/19 Ibuprofen [Motrin 800 mg Tablet] 800 mg PO Q8 #60 tablet 09/18/19 HPI Reason(s) for Admission: Induction of Labor, Obstetric Complications, Other - CHTN vs Pre-eclampsia Procedures: NST, Ultrasound Intrapartum Procedure(s): Spontaneous Vaginal Delivery Hospital Course Hospital Course: routine PP course Results Laboratory Results: WBC 19.3 10^3/uL (4.0-10.5) H 09/17/19 06:25 RBC 3.71 10^6/uL (3.72-5.28) L 09/17/19 06:25 Hgb 11.5 g/dL (12.0-15.5) L D 09/17/19 06:25 Hct 33.6 % (36.0-47.0) L 09/17/19 06:25 MCV 91 fl (80-97) 09/17/19 06:25 MCH 31.0 pg (27.0-33.4) 09/17/19 06:25 MCHC 34.2 g/dL (32.0-36.0) 09/17/19 06:25 RDW 14.2 % (11.5-14.0) H 09/17/19 06:25 Plt Count 204 10^3/uL (150-450) 09/17/19 06:25 Sodium 133.8 mmol/L (137-145) L 09/15/19 10:35 Potassium 4.4 mmol/L (3.6-5.0) 09/15/19 10:35 Chloride 103 mmol/L (98-107) 09/15/19 10:35 Carbon Dioxide 19 mmol/L (22-30) L 09/15/19 10:35 Anion Gap 12 (5-19) 09/15/19 10:35 BUN 12 mg/dL (7-20) 09/15/19 10:35 Creatinine 0.53 mg/dL (0.52-1.25) 09/15/19 10:35 Est GFR ( Amer) > 60 (>60) 09/15/19 10:35 Est GFR (MDRD) Non-Af > 60 (>60) 09/15/19 10:35 Glucose 73 mg/dL (75-110) L 09/15/19 10:35 Uric Acid 4.3 mg/dL (2.5-6.2) 09/15/19 10:35 Calcium 9.1 mg/dL (8.4-10.2) 09/15/19 10:35 Total Bilirubin 0.4 mg/dL (0.2-1.3) 09/15/19 10:35 Direct Bilirubin 0.3 mg/dL (0.0-0.4) 09/15/19 10:35 Neonat Total Bilirubin Not Reportable 09/15/19 10:35 Neonat Direct Bilirubin Not Reportable 09/15/19 10:35 Neonat Indirect Bili Not Reportable 09/15/19 10:35 AST 25 U/L (14-36) 09/15/19 10:35 ALT 16 U/L (<35) 09/15/19 10:35 Alkaline Phosphatase 123 U/L (38-126) 09/15/19 10:35 Lactate Dehydrogenase 168 U/L (120-246) 09/15/19 10:35 Total Protein 6.4 g/dL (6.3-8.2) 09/15/19 10:35 Albumin 3.5 g/dL (3.5-5.0) 09/15/19 10:35 Urine Color YELLOW 09/15/19 09:21 Urine Appearance SLIGHTLY-CLOUDY 09/15/19 09:21 Urine pH 5.0 (5.0-9.0) 09/15/19 09:21 Ur Specific [place] 1.020 09/15/19 09:21 Urine Protein NEGATIVE mg/dL (NEGATIVE) 09/15/19 09:21 Urine Glucose (UA) 50 mg/dL (NEGATIVE) H 09/15/19 09:21 Urine Ketones NEGATIVE mg/dL (NEGATIVE) 09/15/19 09:21 Urine Blood NEGATIVE (NEGATIVE) 09/15/19 09:21 Urine Nitrite NEGATIVE (NEGATIVE) 09/15/19 09:21 Urine Bilirubin NEGATIVE (NEGATIVE) 09/15/19 09:21 Urine Urobilinogen NEGATIVE mg/dL (<2.0) 09/15/19 09:21 Ur Leukocyte Esterase NEGATIVE (NEGATIVE) 09/15/19 09:21 Urine WBC (Auto) 1 /HPF 09/15/19 09:21 Urine RBC (Auto) 1 /HPF 09/15/19 09:21 Squamous Epi Cells Auto 2 /HPF 09/15/19 09:21 Urine Mucus (Auto) OCC /LPF 09/15/19 09:21 Urine Ascorbic Acid NEGATIVE (NEGATIVE) 09/15/19 09:21 Urine Opiates Screen NEGATIVE 09/15/19 09:21 Urine Methadone Screen NEGATIVE 09/15/19 09:21 Ur Barbiturates Screen NEGATIVE 09/15/19 09:21 Ur Phencyclidine Scrn NEGATIVE 09/15/19 09:21 Ur Amphetamines Screen NEGATIVE 09/15/19 09:21 U Benzodiazepines Scrn NEGATIVE 09/15/19 09:21 Urine Cocaine Screen NEGATIVE 09/15/19 09:21 U Marijuana (THC) Screen NEGATIVE 09/15/19 09:21 RPR NONREACTIVE (NONREACTIVE) 09/15/19 10:35 Blood Type O POSITIVE 09/15/19 10:35 Antibody Screen NEGATIVE 09/15/19 10:35 Plan Health Concerns: watch BP, Pt has ringworm spot on her calf, currently putting medication to the area, good handwashing and avoiding contact w/ baby discussed Plan of Treatment: d/c home. f/u with [facility] for BP check in one week Time Spent: Less than 30 Minutes
[2019-09-18 10:14] VITALS: BP 139/74
--- NOTE | 2019-09-22 11:47 | Delivery Summary ---
Del Sum A-C Datetime Report Generated by CPN: 09/22/2019 11:47 DELIVERY PERSONNEL DELIVERY PERSONNEL: [id number] Delivery Doctor:: Ruht Nye CNM Nurse Timber Deadener Certified:: Ruth Nye CNM Labor and Delivery Nurse:: Chapis Shepherd RNcaramel candy maker helper Nurse:: NUBIA Nguyen Nursery Nurse:: Rosibel Montelongo RN Nursery Nurse:: SIMBA Novak Tech/HUSKER OPERATOR: Tari Man, ST MATERNAL INFORMATION Delivery Anesthesia: Epidural Medications After Delivery: Pitocin Bolus-Please Comment Meds After Delivery Comment: Pitocin 20 units in 1000 ml nss open for bolus Delivery QBL: 200 Maternal Complications: None Provider Comments: pt progressed to c/c/1 with urge to push, began pushing and when on to deliver a viable baby boy. Vigorous respiratory effort and cry spontaneously at delivery. Baby with short cord and placed on the maternal's lower abdominal segment. Cord allowed to stop pulsating then clamped x2 and cut by FOB (cord blood obtained, 3vc noted). Placenta delivered spontaneously intact, fundus firm @ u-2 but it would become boggy with moderate bleeding and firm up with massage. Several clots out then minimal bleeding and fundus firm but 1000mcg cytotec placed rectally for prophylaxis. Pt and baby skin to skin and bonding at this time. Terminal meconium noted LABOR SUMMARY EDC: 09/29/2019 00:00 No. Babies in Womb: 1 Attempted: No Labor Anesthesia: Epidural LABOR INFORMATION Reason for Induction: Chronic Primary/Essential HTN; Pre-Eclampsia Onset of Labor: 09/15/2019 20:49 Complete Dilatation: 09/16/2019 13:01 Cervical Ripening Agents: Jackson Balloon; Cytotec @ Cervical Ripening Agents: Cervidil Cervical Ripening Agents: Cytotec @ 50mcg PO and 25mcg PV Cervical Ripening Agents: Cervidil (Annotations: removed by RN) Cervical Ripening Agents: Cervidil Oxytocin: Induction Group B Beta Strep: POSITIVE Antibiotics # of Doses: 6 Antibiotics Time of Last Dose: 1109 Name of Antibiotic Given: penicillin Steroids Given: None Reason Steroids Not Administered: Not Applicable MEMBRANES Membranes Rupture Method: Spontaneous Rupture of Membranes: 09/15/2019 20:49 Length of Rupture (hr): 16.90 Amniotic Fluid Color: Clear Amniotic Fluid Amount: Small Amniotic Fluid Odor: Normal STAGES OF LABOR Stage 1 hr: 16 Stage 1 min: 12 Stage 2 hr: 0 Stage 2 min: 42 Stage 3 hr: 0 Stage 3 min: 5 Total Time in Labor hr: 16 Total Time in Labor min: 59 VAGINAL DELIVERY Episiotomy: None Laceration #1: Vaginal Laceration Extension #1: First Degree Laceration Repair: Not Applicable Laceration Repair Note: tear is hemostatic no need for repair Sponge Count Correct: N/A Sharps Count Correct: N/A CSECTION DELIVERY Primary Indication: N/A Secondary Indication: N/A CSection Incidence: N/A Labor: N/A Elective: N/A CSection Incision: N/A Uterine Closure: N/A BABY A INFORMATION Infant Delivery Date/Time: 09/16/2019 13:43 Method of Delivery: Vaginal Born in Route : No : N/A Forceps: N/A Vacuum Extraction: N/A Shoulder Dystocia : No PRESENTATION/POSITION BABY A Presentation: Cephalic Presentation: Cephalic Cephalic Presentation: Vertex Vertex Position: Right Occipital Anterior Breech Presentation: N/A PLACENTA INFORMATION BABY A Placenta Delivery Time : 09/16/2019 13:48 Placenta Method of Delivery: Spontaneous Placenta Status: Delivered SCORES BABY A Heart Rate 1 min: >100 bpm Resp Effort 1 min: Good Cry Reflex Irritability 1 min: Cough or Sneeze or Pulls Away Muscle Tone 1 min: Active Motion Color 1 min: Blue/Pale Resuscitation Effort 1 min: Tactile Stimulation SCORE 1 MIN: 8 Heart Rate 5 min: >100 bpm Resp Effort 5 min: Good Cry Reflex Irritability 5 min: Cough or Sneeze or Pulls Away Muscle Tone 5 min: Active Motion Color 5 min: Body [place], Extremities Blue Resuscitation Effort 5 min: N/A SCORE 5 MIN: 9 INFORMATION BABY A Gestational Age at Delivery: 38.1 Gestational Status: Early Term- 37- 38.6 Weeks Outcome : Liveborn Infant Condition : Stable Sex: Male IDENTIFICATION BABY A Verification Date/Time: 09/16/2019 15:18 ID Band Number: [id number] Mother's Name Verified: Yes Infant RN Verifying Infant: Iveth Shepherd RN Additional Verifying Personnel: Reginald RN WEIGHT/LENGTH BABY A Birthweight (gm): 2901 Infant Weight (lb): 6 Weight (oz): 6 Length (in): 20.00 Infant Length (cm): 50.80 CORD INFORMATION BABY A No. Cord Vessels: 3 Nuchal Cord : N/A Cord Blood Taken: Yes-For Eval (Mom's Blood Type - or O+) Suction: None ASSESSMENT BABY A Skin to Skin: Yes BABY B INFORMATION : N/A SIGNATURES Assignment: Nicolasa Velez MD Signature: with User ID: Cain : with User ID: Cain
== END 2019-09-18 15:00 | disposition home or self-care (01) | DRG 807 ==
LOC: LR 08:44 → 2S 09-16 16:05
PROVIDERS: ADMIT Obstetrics & Gynecology; ATTEND Obstetrics & Gynecology
PROC: 10E0XZZ Delivery of Products of Conception, External Approach (ICD-10-PCS; principal; 2019-09-15)
PROC: 3E033VJ Introduction of Other Hormone into Peripheral Vein, Percutaneous Approach (ICD-10-PCS; 2019-09-15)
PROC: 4A1HXCZ Monitoring of Products of Conception, Cardiac Rate, External Approach (ICD-10-PCS; 2019-09-15)
DX: O11.4 Pre-existing hypertension with pre-eclampsia, complicating childbirth (principal); Z37.0 Single live birth; O10.02 Pre-existing essential hypertension complicating childbirth; O99.824 Streptococcus B carrier state complicating childbirth; O70.0 First degree perineal laceration during delivery; Z87.891 Personal history of nicotine dependence; Z3A.37 37 weeks gestation of pregnancy
CPT/HCPCS: 36415; 80053; 80307; 81001; 83615; 84550; 85027; 86592; 86850; 86900; 86901; 94760; J2300; J2540; J2550; J2590; J3010; J3490

== ENCOUNTER 2020-09-08 21:05 | Inpatient (IN) | payer OTHER, MEDICAID ==
[2020-09-08] MEDS ORDERED: ZOLPIDEM TARTRATE 5 MG TABLET PO PRN (21:26)
[2020-09-08] MEDS ORDERED: DINOPROSTONE 10 MG VAGINAL INSERT.SR PV ONE (21:26)
[2020-09-08] MEDS ORDERED: RINGERS SOLUTION,LACTATED 300 ML IV ONE (21:26)
[2020-09-08] MEDS ORDERED: ACETAMINOPHEN 325 MG TABLET PO PRN (21:26)
[2020-09-08 21:56] LABS: HEMATOCRIT 38.9 % (36.0-47.0); HEMOGLOBIN 13.2 g/dL (12.0-15.5); MEAN CORPUSCULAR HEMOGLOBIN 29.8 pg (27.0-33.4); MEAN CORPUSCULAR VOLUME 88 fl (80-97); PLATELET COUNT 301 10^3/uL (150-450); RED BLOOD COUNT 4.43 10^6/uL (3.72-5.28); RED CELL DISTRIBUTION WIDTH 13.5 % (11.5-14.0)
[2020-09-08 21:59] LABS: APPEARANCE,URINE CLOUDY; BILIRUBIN,URINE NEGATIVE (NEGATIVE); COLOR,URINE YELLOW; GLUCOSE, URINE NEGATIVE (NEGATIVE); KETONES,URINE NEGATIVE (NEGATIVE); LEUKOCYTE ESTERASE,URINE NEGATIVE (NEGATIVE); NITRITE,URINE NEGATIVE (NEGATIVE); PROTEIN,URINE 30 mg/dL (NEGATIVE); URINE SPECIFIC GRAVITY 1.028
--- NOTE | 2020-09-08 22:03 | Admission Physical ---
Datetime Report Generated by CPN: 09/08/2020 22:03 CURRENT ADMISSION Chief Complaint: Scheduled Induction of Labor Indication for Induction: Gestational HTN Admit Impression : Term, Intrauterine Admit Plan: Admit to Unit; Initiate Labor Induction Protocol ALLERGIES Medication Allergies: adhesive tape (09/08/2020) PHYSICAL EXAM General: Normal HEENT: Normal Neurologic: Normal Thyroid: Normal Heart: Normal Lungs: Normal Breast: Deferred Back: Normal Abdomen: Normal Genitourinary Exam: Normal Extremities: Normal DTRs: Normal Pelvic Type: Adequate Vital Signs: Reviewed VAGINAL EXAM Dilatation: 1 Effacement: 50 Station: -3 FETUS A Monitoring: External US FHR- Baseline: 120 Variability: Moderate 6-25bpm Decelerations: None FHR Category: Category I Estimated Weight (gm): 3300 Presentation: Vertex Admit Comment: admit for cervadil. INFORMED CONSENT Signature: with User ID: [email or web address]
[2020-09-08 22:15] LABS: URINE AMPHETAMINES SCREEN NEGATIVE; URINE BARBITURATES SCREEN NEGATIVE; URINE BENZODIAZEPINES SCREEN NEGATIVE; URINE COCAINE SCREEN NEGATIVE; URINE METHADONE SCREEN NEGATIVE; URINE PHENCYCLIDINE SCREEN NEGATIVE
[2020-09-08 22:18] LABS: URINE MARIJUANA (THC) SCREEN UNCONFIRMED POSITIVE
[2020-09-08] MEDS ORDERED: DINOPROSTONE 10 MG VAGINAL INSERT.SR ONE (22:24)
[2020-09-08] MEDS: RINGERS SOLUTION,LACTATED 1,000 ML IV PRN (22:39)
[2020-09-08 22:49] LABS: ALBUMIN 3.5 g/dL (3.5-5.0); ANION GAP 10 (5-19); ASPARTATE AMINO TRANSFERASE 24 U/L (14-36); BILIRUBIN,DIRECT 0.1 mg/dL (0.0-0.4); BILIRUBIN,TOTAL 0.2 mg/dL (0.2-1.3); BLOOD UREA NITROGEN 11 mg/dL (7-20); CALCIUM 8.9 mg/dL (8.4-10.2); CARBON DIOXIDE 17 mmol/L (22-30); CHLORIDE 106 mmol/L (98-107); GLUCOSE 129 mg/dL (75-110); NEONATAL BILIRUBIN RESULT 0.1 mg/dL (0.1-1.1); POTASSIUM 4.1 mmol/L (3.6-5.0); TOTAL PROTEIN 6.6 g/dL (6.3-8.2); URIC ACID 3.6 mg/dL (2.5-6.2)
[2020-09-08 22:50] LABS: ALKALINE PHOSPHATASE 197 U/L (38-126)
[2020-09-08] MEDS ORDERED: LABETALOL HCL 200 MG TABLET ONE (23:08)
[2020-09-08] MEDS ORDERED: ZOLPIDEM TARTRATE 5 MG TABLET ONE (23:09)
[2020-09-08] MEDS ORDERED: MAG HYDROX/AL HYDROX/SIMETH SUSP 30 ML UDCUP ONE (23:19)
[2020-09-08] MEDS: MAG HYDROX/AL HYDROX/SIMETH SUSP 30 ML UDCUP PO PRN (23:20)
[2020-09-09] MEDS ORDERED: LABETALOL HCL 200 MG TABLET PO ONE (00:30)
[2020-09-09] MEDS: RINGERS SOLUTION,LACTATED 1,000 ML IV PRN (07:49)
[2020-09-09] MEDS ORDERED: LABETALOL HCL 200 MG TABLET ONE ×2 (10:07→22:12)
[2020-09-09] MEDS: LABETALOL HCL 200 MG TABLET PO SCH ×2 (10:16→22:26)
[2020-09-09] MEDS ORDERED: OXYTOCIN/0.9 % SODIUM CHLORIDE 30 UNIT/500 ML RTUINJ IV PRN (12:02)
[2020-09-09] MEDS ORDERED: OXYTOCIN 10 UNIT/ML VIAL ONE (12:05)
[2020-09-09] MEDS ORDERED: OXYTOCIN/0.9 % SODIUM CHLORIDE 30 UNIT/500 ML RTUINJ ONE (12:05)
[2020-09-09] MEDS ORDERED: LIDOCAINE 1% INJ-PF (10 MG/ML) 30 ML SDV ONE (12:05)
[2020-09-09] MEDS ORDERED: MISOPROSTOL 0.2 MG TABLET ONE (12:05)
[2020-09-09] MEDS ORDERED: PENICILLIN G POTASSIUM 5,000,000 UNIT in DEXTROSE 5%-WATER 100 ML IV ONE (12:48)
[2020-09-09] MEDS ORDERED: PENICILLIN G-K 5 MILLION UNIT VIAL ONE (12:55)
[2020-09-09] MEDS: PENICILLIN G POTASSIUM 2,500,000 UNIT in DEXTROSE 5%-WATER 50 ML IV SCH (17:08)
[2020-09-09] MEDS ORDERED: DINOPROSTONE 10 MG VAGINAL INSERT.SR PV SCH (17:15)
[2020-09-09] MEDS ORDERED: DINOPROSTONE 10 MG VAGINAL INSERT.SR ONE (18:10)
--- NOTE | 2020-09-09 19:21 | RADIOLOGY REPORT (SQ) ---
EXAM DESCRIPTION: U/S OB LIMITED IMAGES COMPLETED DATE/TIME: 09/09/2020 6:53 pm REASON FOR STUDY: IOL, unable to feel presenting part COMPARISON: None. TECHNIQUE: Limited transabdominal grayscale ultrasound for evaluation of specific requested obstetri dwaine parameters. LIMITATIONS: None. FINDINGS: CERVICAL LENGTH: Not well seen. Appears to measure about 2 cm. Closed. JAMAL: 11.6 cm. FHR: 135 beats per minute. PRESENTATION: Cephalic. PLACENTA: Fundal. ANATOMY: Not assessed OTHER: No other significant findings. IMPRESSION: LIMITED OBSTETRICAL ULTRASOUND WITH MEASURED PARAMETERS DELINEATED ABOVE. Trimester of : Third trimester - 28 weeks to delivery. TECHNICAL DOCUMENTATION: JOB ID: [id number] 2010 [employer]- All Rights Reserved Reading location - IP/workstation name: [email or web address]
[2020-09-09] MEDS ORDERED: MAG HYDROX/AL HYDROX/SIMETH SUSP 30 ML UDCUP ONE (20:43)
[2020-09-09] MEDS: MAG HYDROX/AL HYDROX/SIMETH SUSP 30 ML UDCUP PO PRN (20:48)
--- NOTE | 2020-09-10 08:45 | L&D Progress Notes ---
PROGRESS NOTES Datetime Report Generated by CPN: 09/10/2020 08:45 PROGRESS NOTE Impression: Reassuring Heart Rate Procedures: Sterile Vag Exam Plan: Augmentation Plan Other: Discussed minimal cervical change after second Cervidil Informed Consent Obtained: Risks, Benefits and Alternatives Discussed Informed Consent Obtained- Other: WIll give pit low dose and if no change consider discharge Vital Signs : Reviewed Vital Signs Comments: 2 mildly elevated b/p No PIH symptoms Comment: at 37.4 wks EGA for IOL d/t cHTN on Labelol 100mg BID -Exam neg for PreE findings. cervix /-3 , intact -D/c options after second cervidil now. B/p's stable.. Can either retry pitocin low dose protocol or discharge and reschedule IOL in 1-2 wks as she has a stable b/p and no PIH findings. Labs stable also. She desires retry of pitocin -Begin Pit low dose protocol -NST cat 1 VAGINAL EXAM Dilatation: 2 Effacement: 50 Station: -3 LAST VAGINAL EXAM-NURSING Nursing Exam Dilitation: 2.0 Nursing Exam Effacement: 50 Nursing Exam Station: high Nursing Exam Contractions: none noted, pt. denies feeling ctn's MEMBRANES Pooling: Negative Membranes: Intact FETUS A FHR - Baseline: 130 Monitoring: External US Variability: Moderate 6-25bpm Accelerations: 15X15 Decelerations: None FHR Category: Category I : 37.4 Estimated Weight (gm): 3300 Presentation: Vertex SIGNATURE SIGNATURE: [id number];[id number] Signature: with User ID: [email or web address] : with User ID: [email or web address]
[2020-09-10] MEDS ORDERED: MAG HYDROX/AL HYDROX/SIMETH SUSP 30 ML UDCUP PO ONE (08:50)
[2020-09-10] MEDS: PENICILLIN G POTASSIUM 2,500,000 UNIT in DEXTROSE 5%-WATER 50 ML IV SCH (08:54)
[2020-09-10] MEDS ORDERED: OXYTOCIN/0.9 % SODIUM CHLORIDE 30 UNIT/500 ML RTUINJ IV PRN (09:14)
[2020-09-10] MEDS ORDERED: PENICILLIN G POTASSIUM 5,000,000 UNIT in DEXTROSE 5%-WATER 100 ML IV ONE (09:14)
[2020-09-10] MEDS ORDERED: PENICILLIN G-K 5 MILLION UNIT VIAL ONE ×2 (09:32→13:19)
[2020-09-10] MEDS ORDERED: OXYTOCIN/0.9 % SODIUM CHLORIDE 30 UNIT/500 ML RTUINJ ONE (09:36)
[2020-09-10] MEDS ORDERED: LABETALOL HCL 200 MG TABLET ONE (10:11)
[2020-09-10] MEDS: LABETALOL HCL 200 MG TABLET PO SCH (10:12)
[2020-09-10] MEDS: RINGERS SOLUTION,LACTATED 1,000 ML IV PRN (13:27)
[2020-09-10] MEDS ORDERED: PENICILLIN G POTASSIUM 2,500,000 UNIT in DEXTROSE 5%-WATER 50 ML IV SCH (14:00)
--- NOTE | 2020-09-16 14:14 | PDOC DISCHARGE SUMMARY ---
Impression - Admit/DC Date/PCP Admission Date/Primary Care Provider: 09/08/20 21:05 XANDER BURGER MD Discharge Date: 09/10/20 - Discharge Diagnosis (1) Encounter for induction of labor Is this a current diagnosis for this admission?: Yes - Assessment Summary: She was admitted for an induction of labor on the . After two cervidil and pitocin she did not go into labor. Her BP was ok and she decided to go home and stop the induction on the . She will followup in the office. - Additional Information Resuscitation Status: Full Code Discharge Diet: As Tolerated Discharge Activity: Activity As Tolerated, Balance Activity w/Rest Referrals: XANDER BURGER MD [Primary Care Provider] - Home Medications: Vit/Dha [ Multi + Dha Capsule] 1 cap PO DAILY 06/17/19 Labetalol HCl 100 mg PO BID 08/28/19 Vit D3/Folic Acid/B2/B6/B12 [Folgard Tablet] 1 each PO DAILY 08/28/19 History of Present Illiness History of Present Illness: JEAN HINES is a 25 year old female Results Laboratory Results: WBC 14.0 10^3/uL (4.0-10.5) H 09/08/20 21:40 RBC 4.43 10^6/uL (3.72-5.28) 09/08/20 21:40 Hgb 13.2 g/dL (12.0-15.5) 09/08/20 21:40 Hct 38.9 % (36.0-47.0) 09/08/20 21:40 MCV 88 fl (80-97) 09/08/20 21:40 MCH 29.8 pg (27.0-33.4) 09/08/20 21:40 MCHC 34.0 g/dL (32.0-36.0) 09/08/20 21:40 RDW 13.5 % (11.5-14.0) 09/08/20 21:40 Plt Count 301 10^3/uL (150-450) 09/08/20 21:40 Sodium 133.0 mmol/L (137-145) L 09/08/20 21:40 Potassium 4.1 mmol/L (3.6-5.0) 09/08/20 21:40 Chloride 106 mmol/L (98-107) 09/08/20 21:40 Carbon Dioxide 17 mmol/L (22-30) L 09/08/20 21:40 Anion Gap 10 (5-19) 09/08/20 21:40 BUN 11 mg/dL (7-20) 09/08/20 21:40 Creatinine 0.51 mg/dL (0.52-1.25) L 09/08/20 21:40 Est GFR ( Amer) > 60 (>60) 09/08/20 21:40 Est GFR (MDRD) Non-Af > 60 (>60) 09/08/20 21:40 Glucose 129 mg/dL (75-110) H 09/08/20 21:40 Uric Acid 3.6 mg/dL (2.5-6.2) 09/08/20 21:40 Calcium 8.9 mg/dL (8.4-10.2) 09/08/20 21:40 Total Bilirubin 0.2 mg/dL (0.2-1.3) 09/08/20 21:40 Direct Bilirubin 0.1 mg/dL (0.0-0.4) 09/08/20 21:40 Neonat Total Bilirubin 0.1 mg/dL (0.1-1.1) 09/08/20 21:40 Neonat Direct Bilirubin 0.0 mg/dL (0.0-0.3) 09/08/20 21:40 Neonat Indirect Bili 0.1 mg/dL (0.0-1.1) 09/08/20 21:40 AST 24 U/L (14-36) 09/08/20 21:40 ALT 17 U/L (<35) 09/08/20 21:40 Alkaline Phosphatase 197 U/L (38-126) H 09/08/20 21:40 Lactate Dehydrogenase 169 U/L (120-246) 09/08/20 21:40 Total Protein 6.6 g/dL (6.3-8.2) 09/08/20 21:40 Albumin 3.5 g/dL (3.5-5.0) 09/08/20 21:40 Urine Color YELLOW 09/08/20 21:30 Urine Appearance CLOUDY 09/08/20 21:30 Urine pH 6.0 (5.0-9.0) 09/08/20 21:30 Ur Specific [place] 1.028 09/08/20 21:30 Urine Protein 30 mg/dL (NEGATIVE) H 09/08/20 21:30 Urine Glucose (UA) NEGATIVE mg/dL (NEGATIVE) 09/08/20 21:30 Urine Ketones NEGATIVE mg/dL (NEGATIVE) 09/08/20 21:30 Urine Blood NEGATIVE (NEGATIVE) 09/08/20 21:30 Urine Nitrite NEGATIVE (NEGATIVE) 09/08/20 21:30 Urine Bilirubin NEGATIVE (NEGATIVE) 09/08/20 21:30 Urine Urobilinogen 2.0 mg/dL (<2.0) H 09/08/20 21:30 Ur Leukocyte Esterase NEGATIVE (NEGATIVE) 09/08/20 21:30 Urine Ascorbic Acid NEGATIVE (NEGATIVE) 09/08/20 21:30 Urine Opiates Screen NEGATIVE 09/08/20 21:30 Urine Methadone Screen NEGATIVE 09/08/20 21:30 Ur Barbiturates Screen NEGATIVE 09/08/20 21:30 Ur Phencyclidine Scrn NEGATIVE 09/08/20 21:30 Ur Amphetamines Screen NEGATIVE 09/08/20 21:30 U Benzodiazepines Scrn NEGATIVE 09/08/20 21:30 Urine Cocaine Screen NEGATIVE 09/08/20 21:30 U Cannabinoids Confirm Positive (.) A 09/08/20 21:30 U Marijuana (THC) Screen UNCONFIRMED POSITIVE 09/08/20 21:30 RPR NONREACTIVE (NONREACTIVE) 09/08/20 21:40 Blood Type O POSITIVE 09/08/20 21:40 Antibody Screen NEGATIVE 09/08/20 21:40 Impressions: Obstetrics Ultrasound 09/09/20 00:00 IMPRESSION: LIMITED OBSTETRICAL ULTRASOUND WITH MEASURED PARAMETERS DELINEATED ABOVE. Trimester of : Third trimester - 28 weeks to delivery. Stroke Is this a Stroke Patient?: No Acute Heart Failure Is this a Heart Failure Patient?: No
== END 2020-09-10 15:48 | disposition home or self-care (01) | DRG 998 ==
LOC: LR 21:05
PROVIDERS: ADMIT Obstetrics & Gynecology; ATTEND Obstetrics & Gynecology
PROC: 3E0P7VZ Introduction of Hormone into Female Reproductive, Via Natural or Artificial Opening (ICD-10-PCS; principal; 2020-09-08)
DX: O13.4 Gestational [pregnancy-induced] hypertension without significant proteinuria, complicating childbirth (principal); O61.0 Failed medical induction of labor; Z3A.28 28 weeks gestation of pregnancy
CPT/HCPCS: 36415; 76815; 80053; 80307; 80349; 81005; 83615; 84550; 85027; 86592; 86850; 86900; 86901; G0480; J2540; J2590; J3490; J7060

== ENCOUNTER 2020-09-22 16:26 | Outpatient (CLI) | payer OTHER, MEDICAID ==
[2020-09-22 17:13] LABS: BACTERIA (WET MOUNT) 4+ BACTERIA SEEN; EPITHELIALS (WET MOUNT) 4+ EPITHELIALS SEEN; T.VAGINALIS (WET MOUNT) NO TRICHOMONAS SEEN; WBCS (WET MOUNT) 1+ WBCS SEEN; YEAST (WET MOUNT) NO YEAST SEEN
[2020-09-22 17:31] LABS: UR PRO/CREAT RATIO RESULT 0.5 mg/mg (0.0-0.2); URINE CREATININE 30.2 mg/dL (16-327); URINE PROTEIN 14.8 mg/dL (<12)
[2020-09-22 17:33] LABS: URINE AMPHETAMINES SCREEN NEGATIVE; URINE BARBITURATES SCREEN NEGATIVE; URINE BENZODIAZEPINES SCREEN NEGATIVE; URINE COCAINE SCREEN NEGATIVE; URINE MARIJUANA (THC) SCREEN NEGATIVE; URINE METHADONE SCREEN NEGATIVE; URINE PHENCYCLIDINE SCREEN NEGATIVE
--- NOTE | 2020-09-22 17:35 | Non Stress Test Report ---
Non Stress Test Datetime Report Generated by CPN: 09/22/2020 17:34 DEMOGRAPHIC EGA NST: 39.2 VITAL SIGNS Temperature - NST: 98.1 Pulse - NST: 96 RESP - NST: 15 NBPSYS NST: 110 NBPDIA NST: 57 MONITORING Monitor Explained: Monitor Explained; Test Explained; Patient Verbalized Understanding Time on Monitor: 09/22/2020 16:43 Time off Monitor: 09/22/2020 17:15 NST Duration: 32 NST INTERVENTIONS NST Interventions: PO Hydration Physician Notified NST: Dr Ramirez BABY A: [id number] BABY A Movement : Present Contraction Frequency : denies FHR Baseline : 125 Accelerations : 15X15 Decelerations : None Variability : Moderate 6-25bpm NST Review: Meets Criteria for Reactive NST NST Review and Verified By : NUBIA Green NST Results: Reactive NST REPORT Report Trigger: Send Report
[2020-09-22 17:37] LABS: ABSOLUTE EOSINOPHILS # (AUTO) 0.1 10^3/uL (0.0-0.6); ABSOLUTE LYMPHOCYTES (AUTO) 2.1 10^3/uL (0.5-4.7); BASOPHILS % (AUTO) 0.3 % (0-2); EOSINOPHILS % (AUTO) 0.6 % (0-6); HEMATOCRIT 35.6 % (36.0-47.0); HEMOGLOBIN 12.4 g/dL (12.0-15.5); LYMPHOCYTES % (AUTO) 18.6 % (13-45); MEAN CORPUSCULAR HEMOGLOBIN 29.7 pg (27.0-33.4); MEAN CORPUSCULAR HGB CONC 34.7 g/dL (32.0-36.0); MEAN CORPUSCULAR VOLUME 86 fl (80-97); PLATELET COUNT 244 10^3/uL (150-450); RED BLOOD COUNT 4.16 10^6/uL (3.72-5.28); RED CELL DISTRIBUTION WIDTH 13.3 % (11.5-14.0); SEGMENTED NEUTROPHILS % (AUTO) 71.5 % (42-78); TOTAL CELLS COUNTED % (AUTO) 100 %; WHITE BLOOD COUNT 11.2 10^3/uL (4.0-10.5)
[2020-09-22 17:55] LABS: ALBUMIN 3.1 g/dL (3.5-5.0); ALKALINE PHOSPHATASE 179 U/L (38-126); ANION GAP 6 (5-19); ASPARTATE AMINO TRANSFERASE 24 U/L (14-36); BILIRUBIN,DIRECT 0.1 mg/dL (0.0-0.4); BILIRUBIN,TOTAL 0.3 mg/dL (0.2-1.3); BLOOD UREA NITROGEN 10 mg/dL (7-20); CALCIUM 8.9 mg/dL (8.4-10.2); CARBON DIOXIDE 19 mmol/L (22-30); CHLORIDE 108 mmol/L (98-107); GLUCOSE 84 mg/dL (75-110); POTASSIUM 4.4 mmol/L (3.6-5.0); TOTAL PROTEIN 6.1 g/dL (6.3-8.2)
== END 2020-09-22 18:34 | disposition home or self-care (01) ==
LOC: LC 16:26
PROVIDERS: ATTEND Obstetrics & Gynecology Gynecology
DX: O14.93 Unspecified pre-eclampsia, third trimester (principal); Z3A.39 39 weeks gestation of pregnancy
CPT/HCPCS: 36415; 59025; 80053; 80307; 82570; 83615; 84156; 84550; 85025; 87210

== ENCOUNTER 2020-09-23 18:43 | Outpatient (CLI) | payer OTHER, MEDICAID ==
[2020-09-23 19:52] LABS: 24 HOUR URINE PROTEIN RESULT 240 mg/day (42-225)
== END 2020-09-23 20:09 | disposition home or self-care (01) ==
LOC: LC 18:43
PROVIDERS: ATTEND Obstetrics & Gynecology
DX: O14.93 Unspecified pre-eclampsia, third trimester (principal); Z3A.39 39 weeks gestation of pregnancy
CPT/HCPCS: 84156